=== PATIENT | female | born 1940 | race Caucasian/White ===

== ENCOUNTER → 2017-10-30 | Outpatient (CLI) | payer MEDICARE, OTHER | END | disposition home or self-care (01) | LOC: CFH 08:41 | PROVIDERS: ATTEND Internal Medicine Cardiovascular Disease | DX: I71.4 Abdominal aortic aneurysm, without rupture (principal); I71.2 Thoracic aortic aneurysm, without rupture; I08.1 Rheumatic disorders of both mitral and tricuspid valves; K76.89 Other specified diseases of liver | CPT/HCPCS: 71250; 74176; 93306 ==

== ENCOUNTER → 2017-11-06 | Outpatient (CLI) | payer MEDICARE, OTHER | END | disposition home or self-care (01) | LOC: CFH 10:24 | PROVIDERS: ATTEND Internal Medicine Cardiovascular Disease | DX: Z13.820 Encounter for screening for osteoporosis (principal); N95.9 Unspecified menopausal and perimenopausal disorder | CPT/HCPCS: 77080 ==

== ENCOUNTER → 2017-11-22 | Outpatient (CLI) | payer MEDICARE, OTHER | END | disposition home or self-care (01) | LOC: CFH 09:07 | PROVIDERS: ATTEND Internal Medicine | DX: Z12.31 Encounter for screening mammogram for malignant neoplasm of breast (principal); Z98.82 Breast implant status | CPT/HCPCS: 77067 ==

== ENCOUNTER → 2018-11-25 | Outpatient (CLI) | payer MEDICARE, OTHER | END | disposition home or self-care (01) | LOC: CFH 12:19 | PROVIDERS: ATTEND Internal Medicine Cardiovascular Disease | DX: I07.1 Rheumatic tricuspid insufficiency (principal); I71.4 Abdominal aortic aneurysm, without rupture; I10 Essential (primary) hypertension; Z87.891 Personal history of nicotine dependence | CPT/HCPCS: 93306 ==

== ENCOUNTER → 2018-11-26 | Outpatient (CLI) | payer MEDICARE, OTHER | END | disposition home or self-care (01) | LOC: CFH 12:11 | PROVIDERS: ATTEND Internal Medicine Cardiovascular Disease | DX: K76.89 Other specified diseases of liver (principal); J98.4 Other disorders of lung; Q25.40 Congenital malformation of aorta unspecified | CPT/HCPCS: 71250; 74176 ==

== ENCOUNTER → 2019-08-08 | Outpatient (CLI) | payer MEDICARE, OTHER | END | disposition home or self-care (01) | LOC: CVU 09:31 | PROVIDERS: ATTEND Surgery | DX: I65.22 Occlusion and stenosis of left carotid artery (principal); E78.5 Hyperlipidemia, unspecified; I12.9 Hypertensive chronic kidney disease with stage 1 through stage 4 chronic kidney disease, or unspecified chronic kidney disease; N18.9 Chronic kidney disease, unspecified; Z79.899 Other long term (current) drug therapy; Z87.891 Personal history of nicotine dependence | CPT/HCPCS: 93880 ==

== ENCOUNTER 2019-12-10 12:45 | Outpatient (CLI) | payer MEDICARE, OTHER | END 2019-12-10 23:59 | disposition home or self-care (01) | LOC: CFH 12:45 | PROVIDERS: ATTEND Internal Medicine Cardiovascular Disease | DX: I08.2 Rheumatic disorders of both aortic and tricuspid valves (principal); I71.6 Thoracoabdominal aortic aneurysm, without rupture; N28.1 Cyst of kidney, acquired; M47.816 Spondylosis without myelopathy or radiculopathy, lumbar region; M85.88 Other specified disorders of bone density and structure, other site | CPT/HCPCS: 71250; 74176; 93306 ==

== ENCOUNTER → 2021-01-28 | Outpatient (CLI) | payer MEDICARE, OTHER ==
[~2021-01-28] MED LIST: AMLO5TAB4 PO; ASPI81TA45 PO; ATOR10TA9 PO; BIOT10004 PO; CALC-126 PO; CEFD300C37 PO; DIGO125T85 PO; DILT180C53 PO; DULO60CA56 PO; ESTR-99 PO; FAMO-79 PO; HYDR-3241 PO; IRBE1TAB63 PO; METO25TA91 PO; NAPR-856 PO; OXYC15TA60 PO; REGADENOSON 0.4 MG/5 ML SYRINGE ONE; RIVA20TA PO
== END | disposition home or self-care (01) ==
LOC: RAD 09:34
PROVIDERS: ATTEND Internal Medicine Cardiovascular Disease
DX: Z01.810 Encounter for preprocedural cardiovascular examination (principal); I10 Essential (primary) hypertension; E78.5 Hyperlipidemia, unspecified; R94.31 Abnormal electrocardiogram [ECG] [EKG]
CPT/HCPCS: 78452; 93017; A9502; J2785

== ENCOUNTER 2021-02-01 11:26 | Emergency (ER) | payer MEDICARE, OTHER ==
[~2021-02-01] VITALS: Ht 175.3 cm; Wt 66.5 kg
[2021-02-01] VITALS (7 sets, daily range): BP systolic 108–138; BP diastolic 33–53
[~2021-02-01 11:26] MED LIST changes: -REGADENOSON 0.4 MG/5 ML SYRINGE ONE
--- NOTE | 2021-02-01 11:49 | NUR ---
Pt had recent GI bleed where they cauterized the secum, pt was made aware that she could still have bleeding, pt is taking zolerto, having maroon stools, looks pale, and has a surgery scheduled so pt believes that she needs a blood transfusion. Pt connected to BP and O2 moniotrs, current BP 120/36, DR Lucas at bedside to discuss POC, NADN, all other VSS.
[2021-02-01] MEDS ORDERED: SODIUM CHLORIDE 0.9% 1,000ML IVBOLUS ONE (12:00)
[2021-02-01 12:13] LABS: BASOPHILS % (AUTO) 1 % (0-1); EOSINOPHILS % (AUTO) 1 % (1-7); LYMPHOCYTES % (AUTO) 9 % (22-44); MD NO; MEAN CORPUSCULAR HEMOGLOBIN 26.5 pg (27.0-34.8); MEAN CORPUSCULAR HGB CONC 32.2 g/dL (32.4-35.8); MEAN PLATELET VOLUME 8.3 fL (7.4-10.4); MONOCYTES % (AUTO) 11 % (2-9); NEUTROPHILS % (AUTO) 79 % (42-75); PLATELET COUNT 251 x10^3/uL (130-400); RED BLOOD COUNT 2.81 x10^6/uL (3.82-5.3); RED CELL DISTRIBUTION WIDTH 15.4 % (9.6-15.2)
[2021-02-01 12:24] LABS: ALBUMIN 3.6 g/dL (3.4-5.0); ANION GAP 7 mmol/L (5-15); CALCIUM 9.1 mg/dL (8.5-10.1); CHLORIDE 99 mmol/L (98-107)
[2021-02-01 12:27] LABS: ALANINE AMINOTRANSFERASE 23 U/L (12-78); ALKALINE PHOSPHATASE 102 U/L (45-117); BILIRUBIN,TOTAL 0.4 mg/dL (0.2-1.0); CREATININE 1.62 mg/dL (0.55-1.02); TOTAL PROTEIN 6.7 g/dL (6.4-8.2)
[2021-02-01 12:31] LABS: INTERNATIONAL NORMALIZED RATIO 1.93 (0.93-1.1); PROTHROMBIN TIME 20.4 Seconds (9.6-11.5)
[2021-02-01] MEDS ORDERED: SODIUM CHLORIDE FLUSH 10ML SYR IVF ONE (13:00)
--- NOTE | 2021-02-01 13:08 | NUR ---
Break RN: Signed consent obtained for blood transfusion. Pt AO x 4. Pt denies questions at this time. Pt currently resting on gurney. No acute distress noted at this time. Resp even and equal. Skin slightly pale, warm and dry. at bedside. Pt on cont BP, cardiac and SPO2 monitors. Call light within reach.
--- NOTE | 2021-02-01 14:56 | NUR ---
Pt sitting comfortably in bed reading a book, given additional blanket for comfort, christie ordered per request, PRICILLA LEACH
--- NOTE | 2021-02-01 15:19 | NUR ---
Pt assisted to restroom , ambulatory with steady gait down [address]
--- NOTE | 2021-02-01 15:48 | NUR ---
SECOND UNIT OF BLOOD TRANSFUSING, PT TOLERATING WELL, ON PHONE, NO OTHER REQUESTS AT THIS TIME.
--- NOTE | 2021-02-01 16:14 | NUR ---
Pt provided meal tray, VSS, tolerating transfusion well, no other requests at this time
== END 2021-02-01 17:51 | disposition home or self-care (01) ==
LOC: ED 12:36
DX: K92.2 Gastrointestinal hemorrhage, unspecified (principal); I10 Essential (primary) hypertension; I48.91 Unspecified atrial fibrillation; G89.29 Other chronic pain; Z85.038 Personal history of other malignant neoplasm of large intestine
CPT/HCPCS: 36415; 36430; 80053; 85025; 85610; 85730; 86850; 86900; 86923; 96360; 96361; 99285; J7030; P9016

== ENCOUNTER → 2021-04-13 | Outpatient (CLI) | payer MEDICARE, OTHER ==
[~2021-04-13] MED LIST changes: +DOXY100T PO; +FERR-36 PO; +FURO-93 PO; +LISI-170 PO
== END | disposition home or self-care (01) ==
LOC: CFH 14:21
PROVIDERS: ATTEND Internal Medicine Cardiovascular Disease
DX: Z09 Encounter for follow-up examination after completed treatment for conditions other than malignant neoplasm (principal); I27.20 Pulmonary hypertension, unspecified; I34.8 Other nonrheumatic mitral valve disorders; I71.6 Thoracoabdominal aortic aneurysm, without rupture; R91.1 Solitary pulmonary nodule; N13.30 Unspecified hydronephrosis; K59.00 Constipation, unspecified
CPT/HCPCS: 71250; 74176